=== PATIENT | male | born 1995 | race American Indian/Alaskan Native ===

== ENCOUNTER 2021-04-09 05:35 | Emergency (ER) | payer SELFPAY ==
[2021-04-09] MEDS ORDERED: TETANUS,DIPH,PERTUSS(ACELL) VACCINE 0.5 ML SYRINGE IM ONE (10:04)
[2021-04-09] MEDS ORDERED: LIDOCAINE (1%) 10 MG/1 ML VIAL 20 ML MDV INFILTRATI ONE (10:04)
[2021-04-09] MEDS ORDERED: ACETAMINOPHEN 325 MG TAB PO ONE (10:04)
--- NOTE | 2021-04-09 10:47 | Emergency Department Report ---
- General Chief Complaint: Wound/Laceration Stated Complaint: RT HAND INJURY Time Seen by Provider: 04/09/21 10:02 Source: patient Mode of arrival: Ambulatory Limitations: No Limitations - History of Present Illness Initial Comments: Patient is a 25-year-old male presents emergency room with complaints of a right thumb laceration that occurred around 11 PM. Patient states that he accidentally cut himself on a broken glass cup. He is still able to move the thumb. He states initially there was bleeding but has since improved. He denies any numbness or weakness. No past medical history. No allergies to medications. He is unsure of his last tetanus immunization. - Related Data Allergies Allergy/AdvReac Type Severity Reaction Status Date / Time No Known Allergies Allergy Unverified 04/09/21 05:44 ED Review of Systems ROS: Stated complaint: RT HAND INJURY Other details as noted in HPI Comment: All other systems reviewed and negative ED Past Medical Hx - Past Medical History Previous Medical History?: No - Surgical History Past Surgical History?: No - Social History Smoking Status: Never Smoker Substance Use Type: None ED Physical Exam - General Limitations: No Limitations General appearance: alert, in no apparent distress - Head Head exam: Present: atraumatic, normocephalic - Eye Eye exam: Present: normal appearance - ENT ENT exam: Present: mucous membranes moist - Extremities Exam Extremities exam: Present: other (1.5 cm laceration present to the right thumb on the dorsal surface near the nail, no nail or nail bed involvement, superficial, no active bleeding, no muscle/tendon involvement, no foreign body, FROM, neurovasculalry intact) - Neurological Exam Neurological exam: Present: alert, oriented X3 - Psychiatric Psychiatric exam: Present: normal affect, normal mood - Skin Skin exam: Present: warm, dry ED Course Vital Signs 04/09/21 04/09/21 05:45 10:55 Temperature 99.0 F Pulse Rate 72 64 Respiratory 16 15 Rate Blood Pressure 140/86 Blood Pressure 126/84 [Right] O2 Sat by Pulse 96 99 Oximetry - Laceration /Wound Repair Right Finger Wound Location: upper extremity (dorsal right thumb near the nail, no nail involvement) Wound Length (cm): 1 (1.5 cm total ) Wound's Depth, Shape: superficial Wound Explored: clean Irrigated w/ Saline (ccs): 100 Betadine Prep?: Yes Anesthesia: 1% Lidocaine Volume Anesthetic (ccs): 4 Wound Debrided: moderate Wound Repaired With: sutures Suture Size/Type: 4:0 Number of Sutures: 3 Layer Closure?: No Sterile Dressing Applied?: Yes Progress: Verbal consent obtained by patient Wound irrigated with saline and thoroughly scrubbed with Betadine, no foreign body, no muscle or tendon involvement, wound is superficial, 4 cc of 1% lidocaine without epinephrine used anesthetic, Betadine prep again, sterile drapes applied, sterile gloves worn, 4-0 Prolene used for skin closure, 3 s utures placed, patient tolerated well, no complications, bleeding controlled, sterile dressing applied ED Medical Decision Making - Medical Decision Making Patient is a 25-year-old male presents emergency room with complaints of a right thumb laceration that occurred around 11 PM. Patient states that he accidentally cut himself on a broken glass cup. He is still able to move the thumb. He states initially there was bleeding but has since improved. He denies any numbness or weakness. No past medical history. No allergies to medications. He is unsure of his last tetanus immunization. Vitals are stable. On exam: 1.5 cm laceration present to the right thumb on the dorsal surface near the nail, no nail or nail bed involvement, superficial, no active bleeding, no muscle/tendon involvement, no foreign body, FROM, neurovasculalry intact. Laceration repaired per procedure note without any complications. Advised patient Please keep area clean, dry, covered. May wash with antibacterial soap and water and pat dry. No hot tub, no pool, no soaking in water. Follow-up with a primary care doctor for reexamination. Sutures will need to be removed in 10 to 14 days. Return to emergency room for any new or worsening symptoms. Critical care attestation.: If time is entered above; I have spent that time in minutes in the direct care of this critically ill patient, excluding procedure time. ED Disposition Clinical Impression: Laceration of right thumb Qualifiers: Encounter type: initial encounter Damage to nail status: without damage Foreign body presence: without foreign body Qualified Code(s): S61.011A - Laceration without foreign body of right thumb without damage to nail, initial encounter Disposition: TO HOME OR SELFCARE Is pt being admited?: No Does the pt Need Aspirin: No Condition: Stable Instructions: Laceration Care, Adult Additional Instructions: Please keep area clean, dry, covered. May wash with antibacterial soap and water and pat dry. No hot tub, no pool, no soaking in water. Follow-up with a primary care doctor for reexamination. Sutures will need to be removed in 10 to 14 days. Return to emergency room for any new or worsening symptoms. Referrals: PRIMARY CARE, [Primary Care Provider] - 3-5 Days Time of Disposition: 10:47 Print Language: [place]
[2021-04-09 11:01] VITALS: BP 126/84
== END 2021-04-09 10:55 | disposition home or self-care (01) ==
LOC: ED 05:35
DX: S61.011A Laceration without foreign body of right thumb without damage to nail, initial encounter (principal); W25.XXXA Contact with sharp glass, initial encounter; Y93.89 Activity, other specified; Y92.89 Other specified places as the place of occurrence of the external cause; Y99.8 Other external cause status
CPT/HCPCS: 90471; 90715; 99282